=== PATIENT | female | born 1980 | race African-American/Black ===

== ENCOUNTER 2017-11-21 13:27 | Emergency (ER) | payer BC ==
[2017-11-21] MEDS ORDERED: Water For Inject, Bacteriostat 30 ML ONE (14:17)
== END 2017-11-21 14:49 | disposition home or self-care (01) ==
LOC: NAV ERS 13:27
DX: T78.40XA Allergy, unspecified, initial encounter (principal)
CPT/HCPCS: 96372; J2920

== ENCOUNTER 2020-06-23 01:57 | Emergency (ER) | payer BC ==
[2020-06-23] MEDS ORDERED: methylPREDNISolone Sod Succ/PF 125 MG/2 ML VIAL ONE (02:58)
[2020-06-23] MEDS ORDERED: Famotidine/PF 20 mg/2ml Vial ONE (02:58)
[2020-06-23] MEDS ORDERED: diphenhydrAMINE 50 MG/ML VIAL ONE (02:58)
== END 2020-06-23 05:27 | disposition left against medical advice (07) ==
LOC: NAV ERS 01:57
DX: T78.3XXA Angioneurotic edema, initial encounter (principal); T39.395A Adverse effect of other nonsteroidal anti-inflammatory drugs [NSAID], initial encounter; D64.9 Anemia, unspecified; Z79.899 Other long term (current) drug therapy
CPT/HCPCS: 96374; 96375; J1200; J2930; S0028

== ENCOUNTER 2021-02-05 09:58 | Emergency (ER) | payer BC ==
[2021-02-05] MEDS ORDERED: predniSONE 20 MG TAB ONE (10:16)
== END 2021-02-05 10:24 | disposition home or self-care (01) ==
LOC: NAV ERS 09:58
DX: R22.0 Localized swelling, mass and lump, head (principal); T39.315A Adverse effect of propionic acid derivatives, initial encounter; D64.9 Anemia, unspecified; Z79.899 Other long term (current) drug therapy
CPT/HCPCS: 99283; J7512

== ENCOUNTER 2021-10-08 22:39 | Emergency (ER) | payer BC ==
[2021-10-08 23:02] LABS: %Lymphocytes 11.3 % (21.0-51.0); %Neutrophils 87.6 % (42.0-75.0); Hemoglobin 10.4 g/dL (12.0-16.0); Manual Diff?? NO; Mean Corpuscular HGB CONC 28.9 g/dL (32.0-36.0); Mean Corpuscular Hemoglobin 20.3 pg (27.0-31.0); Mean Corpuscular Volume 70.2 fL (78.0-98.0); Mean Platelet Volume 7.4 fL (7.4-10.4); Platelet Count 364 thou/uL (130-400); RBC Distribution Width 14.6 % (11.5-14.5); Red Blood Cell (RBC) Count 5.13 mill/uL (4.20-5.40); White Blood Cell (WBC) Count 4.1 thou/uL (4.8-10.8)
[2021-10-08 23:03] LABS: #Lymphocytes 0.5 thou/uL (1.20-3.40); #Neutrophils 3.6 thou/uL (1.40-6.50); %Basophils 0.1 % (0.0-1.0); %Monocytes 1.1 % (0.0-10.0)
[2021-10-08 23:17] LABS: ALT (SGPT) 19 U/L (8-55); AST (SGOT) 19 U/L (5-34); Alkaline Phosphatase 68 U/L (40-110); Anion Gap 14 mmol/L (10-20); BUN (Urea Nitrogen) 6 mg/dL (7.0-18.7); Bilirubin, Total 0.2 mg/dL (0.2-1.2); Calc. Creatinine Clearance 0 mL/min (70-130); Calcium 9.2 mg/dL (7.8-10.44); Carbon Dioxide 23 mmol/L (22-29); Chloride 102 mmol/L (98-107); Globulin 4.3 g/dL (2.4-3.5); Glucose 184 mg/dL (70-105); Potassium 3.8 mmol/L (3.5-5.1); Protein, Total 8.3 g/dL (6.0-8.3); Sodium 135 mmol/L (136-145)
== END 2021-10-09 00:50 | disposition home or self-care (01) ==
LOC: NAV ERS 22:39
DX: J06.9 Acute upper respiratory infection, unspecified (principal); R07.89 Other chest pain; B34.9 Viral infection, unspecified; D64.9 Anemia, unspecified; Z79.899 Other long term (current) drug therapy
CPT/HCPCS: 71045; 80053; 84484; 85025; 93005; 94760